=== PATIENT | male | born 1975 | race Caucasian/White ===

== ENCOUNTER 2021-02-15 18:13 | Emergency (ER) | payer SELFPAY ==
[~2021-02-15] VITALS: Ht 190.5 cm; Wt 81.8 kg
--- NOTE | 2021-02-15 18:32 | PHYS DOC ---
Past Medical History Past Medical History: Seizure General Adult HPI: HPI: Patient is a 45 year old male who presents with headache, jaw pain, and neck pain after a fall earlier today. He is currently incarcerated. At 1pm today was using the phones with his feet up on a desk and his feet slipped and he fell backwards striking his head. +LOC. Woke up in the [facility]. He was noted to have some shaking activity once after his fall that was self limited. Described as tremor rather than tonic/clonic with a decreased level of consciousness. The assisted was also concerned that he had decreased jumpbasting armhole baster strength, so he was sent in for further evaluation. Blood glucose was in 130s for EMS. GCS 15. Placed in cervical collar prior to arrival. He does not offer this spontaneously but when asked he feels like his right arm feels weaker than usual. Review of Systems: Review of Systems: Constitutional: Denies fever or chills. [] Eyes: Denies change in visual acuity. [] HENT: Reports neck pain and L jaw pain. Respiratory: Denies cough or shortness of breath. [] Cardiovascular: Denies chest pain or edema. [] GI: Denies abdominal pain, nausea, vomiting, bloody stools or diarrhea. [] : Denies dysuria. [] Musculoskeletal: Denies back pain or joint pain. [] Integument: Denies rash. [] Neurologic: Reports headache, and focal R arm weakness. Endocrine: Denies polyuria or polydipsia. [] Lymphatic: Denies swollen glands. [] Psychiatric: Denies depression or anxiety. [] Heart Score: C/O Chest Pain: No Risk Factors: Risk Factors: DM, Current or recent (<one month) smoker, HTN, HLP, family history of CAD, obesity. Risk Scores: Score 0 - 3: 2.5% MACE over next 6 weeks - Discharge Home Score 4 - 6: 20.3% MACE over next 6 weeks - Admit for Clinical Observation Score 7 - 10: 72.7% MACE over next 6 weeks - Early Invasive Strategies Physical Exam: PE: Constitutional: Well developed, well nourished, no acute distress, non-toxic appearance. [] HENT: Normocephalic, atraumatic, bilateral external ears normal, oropharynx moist, no oral exudates, nose normal. [] Eyes: PERRLA, EOMI, conjunctiva normal, no discharge. [] Neck: In field collar. + midline cervical ttp. Cardiovascular:Heart rate regular rhythm, no murmur [] Lungs & Thorax: Bilateral breath sounds clear to auscultation. No chest wall tenderness. [] Abdomen: Bowel sounds normal, soft, no tenderness, no masses, no pulsatile masses. [] Skin: Warm, dry, no erythema, no rash. [] Back: No tenderness, no CVA tenderness. [] Extremities: No pelvic tenderness, No extremity ttp, no cyanosis, no clubbing, ROM intact, no edema. [] Neurologic: Alert and oriented X 3, pupils equal/round/reactive. Speech normal. No facial assymetry. 4/5 strength in RUE in jumpbasting armhole baster strength, flexion/extension of elbow, and abduction. 5/5 strength in LUE in jumpbasting armhole baster strength, flexion/extension of elbow, and abduction. EKG: EKG: [] Radiology/Procedures: Radiology/Procedures: [] Impression: [facility] [address] [place] [address] IMAGING REPORT Signed PATIENT: IRMA TURNER ACCOUNT: [id number] : 1975 LOCATION: ER AGE: 45 SEX: M EXAM STATUS: PRE ER ORD. PHYSICIAN: ITZ SAMAYOA MD REASON: fall, loc, facial trauma PROCEDURE: CT CERVICAL SPINE WO CONTRAST Exam: CT head, maxillofacial and cervical spine INDICATION: Fall, loss of consciousness TECHNIQUE: Sequential axial images through the head, face and cervical spine were obtained without the administration of IV contrast. Exposure: One or more of the following in the visualized dose reduction fabby hniques were utilized for this examination: 1. Automated exposure control 2. Adjustment of the MA and/or KV according to patient size 3. Use of iterative of reconstructive technique Comparisons: None FINDINGS: Head: No focal parenchymal lesion or hemorrhage is identified. There is no midline shift or sulcal effacement. No acute vascular territory infarction is identified. Cabrera-white distinction is preserved. The ventricular system is within normal limits without compression hydrocephalus. The basal cisterns are well maintained. Face: The visualized portions of the paranasal sinuses and mastoid air cells are well-pneumatized. No acute fractures. Globes and contents are normal. Cervical spine: Straightening of cervical spine which may be positional. Vertebral body heights are well-maintained. Fracture through the cervical spine is not identified. Mild multilevel spondylotic change in cervical spine with degenerative disc disease greatest at C5-C6 and C6-C7. Mild bilateral facet arthropathy is also noted in the cervical spine. Visualized paraspinal soft tissues are unremarkable. IMPRESSION: 1. No acute intracranial abnormality. 2. No acute traumatic injury at the face. 3. Negative CT C-spine for acute traumatic injury. Electronically signed by: Rhiannon Leon MD (02/15/2021 7:21 PM) [facility] DICTATED and SIGNED BY: RHIANNON LEON MD DATE: 02/15/21 [id number] [facility] [address] [place] [address] IMAGING REPORT Signed PATIENT: IRMA TURNER ACCOUNT: [id number] : 1975 LOCATION: ER AGE: 45 SEX: M EXAM STATUS: REG ER ORD. PHYSICIAN: ITZ SAMAYOA MD REASON: trauma,neck pain,RUE weakness,uncontrolled seizures throughout MRI PROCEDURE: CERVICAL SPINE WO CONTRAST Exam: MRI cervical spine without contrast INDICATION: Trauma, neck pain, right upper extremity weakness, TECHNIQUE: Multiplanar multisequence MRI of the cervical spine was obtained without the administration of IV contrast. Comparisons: CT same day FINDINGS: Visualized intracranial structures are unremarkable. Vertebral body heights are well-maintained. Straightening of the cervical spine which may positional. Bone marrow signal is normal. Spinal cord has a normal course, caliber and signal. C2-C3: No significant neural foraminal or spinal canal stenosis. C3-C4: Mild broad-based disc ossific complex causing effacement of the ventral CSF. No significant neural foraminal stenosis. C4-C5: Mild broad-based disc ossific complex without significant neural foraminal or spinal canal stenosis. C5-C6: Mild broad-based disc ossific complex effacing the ventral CSF causing mild right-sided neural foraminal stenosis. C6-C7: Evaluation limited secondary to patient motion. C7-T1: Evaluation limited secondary to patient motion. Visualized paraspinal soft tissues are unremarkable. IMPRESSION: 1. No sequela of acute traumatic injury identified at the cervical spine. 2. Mild spondylotic changes as described above, with limitations in the lower cervical spine secondary to patient motion. Electronically signed by: Rhiannon Leon MD (02/15/2021 9:44 PM) [facility] DICTATED and SIGNED BY: RHIANNON LEON MD DATE: 02/15/21 [id number] 0 Course & Med Decision Making: Course & Med Decision Making Pertinent Labs and Imaging studies reviewed. (See chart for details) Pt is a 45 yo male w/ hx of epilepsy who presents after a mechanical fall with head strike and LOC. He has neck pain and RUE weakness on exam. CT imaging of head/neck/facial bones ordered. There was some question of seizure activity after his traumatic injury. Will continue to monitor. 630 CT imaging was negative for acute traumatic injury. Does have right upper extremity weakness, so will obtain MRI of cervical spine to exclude cord/ligamentous injury. Discussed with neurosurgery BULLION WEIGHER, Milagros, who approved MRI after discussion with Dr. Miller. 2152 MRI without acute findings. No traumatic etiology for RUE weakness found. Improved on re-evaluation. Consider carlos's paralysis as potential cause. 2021 Dragon Disclaimer: iConclude Disclaimer: This electronic medical record was generated, in whole or in part, using a voice recognition dictation system. Departure Departure Impression: Primary Impression: Neck pain Disposition: HOME / SELF CARE / HOMELESS Condition: STABLE Additional Instructions: A CT scan of your neck, head, and facial bones was negative for any injuries. An MRI was done of your neck and did not show any injuries to your spinal cord or the ligaments around your spine. For pain tylenol and ibuprofen are best used on a schedule. Please alternate between the two. -Tylenol 1000 mg every 6 hours (do not exceed 4000 mg in one day) -Ibuprofen 400 mg every 6 hours. Take with food. Do not take for more than 1 week. ITZ SAMAYOA MD Feb 15, 2021 18:32
[2021-02-15] MEDS ORDERED: MORPHINE SULFATE 4 MG/ML INJ. IVP ONE ×2 (19:00→21:30)
[2021-02-15 19:04] LABS: BASO # 0.1 x10^3/uL (0.0-0.2); BASO % 1 % (0-3); EOS % 1 % (0-3); HEMATOCRIT 38.7 % (39.0-53.0); HEMOGLOBIN 12.7 g/dL (13.0-17.5); LYMPH % 17 % (24-48); MEAN CORPUSCULAR HEMOGLOBIN 28 pg (25-35); MEAN CORPUSCULAR HGB CONC 33 g/dL (31-37); MEAN CORPUSCULAR VOLUME 84 fL (79-100); MONO # 0.5 x10^3/uL (0.0-1.1); MONO % 8 % (0-9); NEUT # 4.6 x10^3/uL (1.8-7.7); NEUT % 74 % (31-73); PLATELET COUNT 204 x10^3/uL (140-400); WHITE BLOOD COUNT 6.3 x10^3/uL (4.0-11.0)
[2021-02-15 19:12] LABS: CALCIUM 8.6 mg/dL (8.5-10.1); CREATININE 0.8 mg/dL (0.7-1.3); POTASSIUM 4.1 mmol/L (3.5-5.1)
--- NOTE | 2021-02-15 19:23 | RAD ---
Exam: CT head, maxillofacial and cervical spine INDICATION: Fall, loss of consciousness TECHNIQUE: Sequential axial images through the head, face and cervical spine were obtained without th e administration of IV contrast. Exposure: One or more of the following in the visualized dose reduction techniques were utilized for this examination: 1. Automated exposure control 2. Adjustment of the MA and/or KV according to patient size 3. Use of iterative of reconstructive technique Comparisons: None FINDINGS: Head: No focal parenchymal lesion or hemorrhage is identified. There is no midline shift or sulcal effaceme nt. No acute vascular territory infarction is identified. Cabrera-white distinction is preserved. The ventricular system is within normal limits without compression hydrocephalus. The basal cisterns are well maintained. Face: The visualized portions of the paranasal sinuses and mastoid air cells are well-pneumatized. No acute fractures. Globes and contents are normal. Cervical spine: Straightening of cervical spine which may be positional. Vertebral body heights are well-maintained. Fracture through the cervical spine is not identified. Mild multilevel spondylotic change in cervical spine with degenerative disc disease greatest at C5-C6 and C6-C7. Mild bilateral facet arthropathy is also noted in the cervical spine. Visualized paraspinal soft tissues are unremarkable. IMPRESSION: 1. No acute intracranial abnormality. 2. No acute traumatic injury at the face. 3. Negative CT C-spine for acute traumatic injury. Electronically signed by: Rhiannon Robertson MD (02/15/2021 7:21 PM) [facility]
[2021-02-15] MEDS ORDERED: KETOROLAC 15 MG/ML VIAL. ONE (19:46)
--- NOTE | 2021-02-15 19:55 | EKG ---
[facility] [address] [place] [address] Test Date: 2021-02-15 Test Time: 18:58:08 Pat Name: IRMA TURNER Department: Room: Gender: M [employer]: : 1975 Requested By: ITZ SAMAYOA Order Number: [id number] Reading MD: Biju Brown MD Measurements Intervals [place] Rate: 81 P: 132 WV: 138 QRS: 133 QRSD: 104 T: 138 QT: 356 QTc: 414 Interpretive Statements SINUS RHYTHM LIMB LEAD MISPLACEMENT Electronically Signed On 02-15-2021 20:16:45 ISSUING OPERATOR by Biju Brown MD
[2021-02-15] MEDS ORDERED: KETOROLAC 15 MG/ML VIAL. IVP ONE (20:00)
--- NOTE | 2021-02-15 21:47 | RAD ---
Exam: MRI cervical spine without contrast INDICATION: Trauma, neck pain, right upper extremity weakness, TECHNIQUE: Multiplanar multisequence MRI of the cervical spine was obtained without the administratio n of IV contrast. Comparisons: CT same day FINDINGS: Visualized intracranial structures are unremarkable. Vertebral body heights are well-maintained. Straightening of the cervical spine which may positional. Bone marrow signal is normal. Spinal cord has a normal course, caliber and signal. C2-C3: No significant neural foraminal or spinal canal stenosis. C3-C4: Mild broad-based disc ossific complex causing effacement of the ventral CSF. No significant ne ural foraminal stenosis. C4-C5: Mild broad-based disc ossific complex without significant neural foraminal or spinal canal marielle nosis. C5-C6: Mild broad-based disc ossific complex effacing the ventral CSF causing mild right-sided neural foraminal stenosis. C6-C7: Evaluation limited secondary to patient motion. C7-T1: Evaluation limited secondary to patient motion. Visualized paraspinal soft tissues are unremarkable. IMPRESSION: 1. No sequela of acute traumatic injury identified at the cervical spine. 2. Mild spondylotic changes as described above, with limitations in the lower cervical spine seconda ry to patient motion. Electronically signed by: Rhiannon Robertson MD (02/15/2021 9:44 PM) [facility]
[2021-02-15 22:25] VITALS: BP 127/60
== END 2021-02-15 22:44 | disposition home or self-care (01) ==
LOC: ER 18:13 → EEVIPCON 18:13 → ER 22:44
DX: M54.2 Cervicalgia (principal); R51.9 Headache, unspecified; R68.84 Jaw pain; G89.11 Acute pain due to trauma; W18.09XA Striking against other object with subsequent fall, initial encounter; Y93.89 Activity, other specified; Y92.89 Other specified places as the place of occurrence of the external cause; Y99.8 Other external cause status
CPT/HCPCS: 36415; 70450; 70486; 72125; 72141; 80048; 85025; 93005; 96374; 96375; 96376; 99285; J1885; J2270

== ENCOUNTER 2021-02-16 14:36 | Emergency (ER) | payer OTHER ==
[~2021-02-16] VITALS: Ht 185.4 cm; Wt 81.8 kg
[2021-02-16] MEDS ORDERED: IV NORMAL SALINE 1000ML BAG 1,000 ML IV SCH (14:45)
--- NOTE | 2021-02-16 14:46 | PHYS DOC ---
Past Medical History Past Medical History: Seizure Additional Past Medical Histor: neuropathy Past Surgical History: Other Additional Past Surgical Histo: tongue sx, LUE cut repair Smoking Status: Never Smoker Alcohol Use: None General Adult EDM: Chief Complaint: RAPID HEART RATE HPI: HPI: 45-year-old male past medical history of epilepsy and bipolar disorder (gets Risperdal injections), [facility], concern for SVT versus sinus tachycardia of 179 at 1435. Patient reports feeling dizzy, having chest palpitations and feeling short of air. States he tried to bear down which was unsuccessful. States symptoms resolved while he was urinating (persisted for approximately 20 minutes.). Has been incarcerated for over a decade. Denies any meth, cocaine, IV drug use or other stimulants (no prescribed stimulants-med list reviewed). EMR was reviewed and patient was seen in the emergency department yesterday for a witnessed seizure episode and neck pain-MRI of the cervical spine no traumatic injury. Has been vaccinated for Covid. No history of Covid. No prior history of SVT. C/o "mild" headache. Denies any repeat head injury since being seen in the emergency department last night. Review of Systems: Review of Systems: Constitutional: Denies fever or chills. [] Eyes: Denies change in visual acuity. [] HENT: Denies nasal congestion or sore throat. [] Respiratory: Denies cough or hemoptysis Cardiovascular: Denies chest pain or edema or syncope GI: Denies abdominal pain, nausea, vomiting, bloody stools or diarrhea. [] : Denies dysuria or hematuria Musculoskeletal: Denies back pain or joint pain. [] Integument: Denies rash or diaphoresis Neurologic: Denies headache, focal weakness or sensory changes. [] Endocrine: Denies polyuria or polydipsia. [] Lymphatic: Denies swollen glands. [] Psychiatric: Denies depression or anxiety. [] Heart Score: C/O Chest Pain: No Risk Factors: Risk Factors: DM, Current or recent (<one month) smoker, HTN, HLP, family history of CAD, obesity. Risk Scores: Score 0 - 3: 2.5% MACE over next 6 weeks - Discharge Home Score 4 - 6: 20.3% MACE over next 6 weeks - Admit for Clinical Observation Score 7 - 10: 72.7% MACE over next 6 weeks - Early Invasive Strategies Allergies: Allergies: Allergies Coded Allergies Type Severity Reaction Last Updated Verified haloperidol Allergy Intermediate rash 02/15/21 Yes phenytoin Allergy Intermediate rash 02/15/21 Yes Physical Exam: PE: Constitutional: Well developed, well nourished, no acute distress, non-toxic appearance. HENT: Normocephalic, atraumatic, Eyes: EOMI, conjunctiva normal, no discharge. Neck: Normal range of motion, supple, Cardiovascular: S1/2 present, tachycardic on arrival Lungs & Thorax: Speaking in full sentences, bilateral equal chest rise, no tachypnea or increased work of breathing Abdomen: soft, no tenderness, Skin: Warm, dry, no erythema, no rash. [] Extremities: No tenderness, no cyanosis, no lower extremity edema Neurologic: Alert and oriented X 3, normal motor function, normal sensory function, no focal deficits noted. [] Psychologic: Affect normal, judgement normal, mood normal. [] EKG: EKG: Sinus tachycardia 104 bpm, no axis deviation, normal intervals, no T wave inversion, no ST elevation or ST depression, no active chest pain Radiology/Procedures: Radiology/Procedures: []IMAGING REPORT Signed PATIENT: IRMA TURNER ACCOUNT: [id number] : 1975 LOCATION: ER AGE: 45 SEX: M EXAM STATUS: PRE ER ORD. PHYSICIAN: RODRIGUEZ DENNISON DO REASON: svt PROCEDURE: PORTABLE CHEST 1V Single view of the chest. 02/16/2021 2:44 PM Indication: Supraventricular tachycardia Comparison: None Findings: There is no focal consolidation. There is no pleural effusion or pneumothorax. The cardiomediastinal silhouette and pulmonary vasculature are within normal limits. No acute osseous abnormalities are seen. Impression: No evidence of acute cardiopulmonary process. Electronically signed by: Gregory Crane MD (02/16/2021 2:56 PM) [id number] DICTATED and SIGNED BY: GREGORY CRANE MD DATE: 02/16/21 [id number] 0 Course & Med Decision Making: Course & Med Decision Making Pertinent Labs and Imaging studies reviewed. (See chart for details) Concern for brief episode of SVT that did not resolve with fall centimeters at correctional facility. EKG sent from facility did show SVT. Unclear etiology. Basic labs including D-dimer unremarkable. Heart rate on monitor is 91 at time of dispo. Headache mild. Will discharge home with strict ED return precaution s were given for recurrent symptoms, chest pain, neurologic deficits or syncope. Encouraged urgent outpatient follow-up with PMD and cardiology via nonemergent basis. Life-threatening processes were considered but are low suspicion at this time, given history, physical exam and ED workup. Pt was educated on all prescription medications and adverse effects. All patient's questions were answered and pt was stable at time of discharge. Life/limb-threatening differential includes but is not limited to, acute myocardial infarction, aortic dissection, congestive heart failure, esophageal injury including rupture, surgical abdomen, arrhythmia, cardiomyopathy, myocarditis, pericarditis, peptic ulcer disease, pneumomediastinum, pneumonia, pneumothorax, pulmonary embolus, unstable angina, rib fracture, contusion, pericardial tamponade or effusion, traumatic injury including mediastinal hemo rrhage or hematoma, or pulmonary contusion. I have spoken with the patient and/or caregivers. I explained the patient's condition, diagnoses and treatment plan based on the information available to me at this time. I have answered the patient and/or caregiver's questions and addressed any concerns. The patient and/or caregivers have a good understanding of patient's diagnosis, condition and treatment plan as can be expected at this point. Vital signs have been stable. Patient's condition is stable and appropriate for discharge from the emergency department. Patient will pursue further outpatient evaluation with primary care physician or other designated or consulting physician as outlined in the discharge instructions. The patient and/or caregivers are agreeable to this plan of care and follow-up instructions have been explained in detail. The patient and/or caregivers have received these instructions in written form and have expressed an understanding of the discharge instructions. The patient and/or caregivers are aware that any significant change of condition or worsening of symptoms should prompt immediate return to this or the closest emergency department or call to 911. Cristina Disclaimer: Cristina Disclaimer: This electronic medical record was generated, in whole or in part, using a voice recognition dictation system. Departure Departure Impression: Primary Impression: SVT (supraventricular tachycardia) Additional Impression: Headache Disposition: HOME / SELF CARE / HOMELESS Condition: STABLE Referrals: NO PCP (PCP) Follow-up with your primary care physician in 24 to 48 hours OR FOLLOW UP WITH FAMILY MEDICINE: [address], [address] [place] [address] Patient Instructions: General Headache Without Cause, Supraventricular Tachycardia Additional Instructions: FOLLOW UP WITH CARDIOLOGY: FOR DEFINITIVE MANAGEMENT of arrhythmias [facility] [address] [place] [address] EMERGENCY DEPARTMENT GENERAL DISCHARGE INSTRUCTIONS Thank you for coming to [facility] Emergency Department (ED) today and trusting us with you care. We trust that you had a positive experience in our Emergency Department. If you wish to speak to the department management, you may call the Director at [phone]. YOUR FOLLOW UP INSTRUCTIONS ARE FOLLOWS: 1. Do you have a private Doctor? If you do not have a private doctor, please ask for a resource list of physicians or clinics that may be able to assist you with follow up care. 2. The Emergency Physicain has interpreted your x-rays. The X-Ray specialist will also review them. If there is a change in the findings, you will be notified in 48 hours when at all possible. 3. A lab test or culture has been done, your results will be reviewed and you will be notified if you need a change in treatment. ADDITIONAL INSTRUCTIONS AND INFORMATION: 1. Your care today has been supervised by a physician who is specially trained in emergency care. Many problems require more than one evaluation for a complete diagnosis and treatment. We recommend that you schedule your follow up appointment as leigha mmended to ensure complete treatment of you illness or injury. If you are unable to obtain follow up care and continue to have a problem, or if your condition worsens, we recommend that you return to the ED. 2. We are not able to safely determine your condition over the phone nor are we able to give sound medical advice over the phone. For these safety reasons, if you call for medical advice we will ask you to come to the ED for further evaluation. 3. If you have any questions regarding these discharge instructions please call the ED at [phone]. SAFETY INFORMATION: In the interest of safety, wellness, and injury prevention; we encourage you to wear your sealbelt, if you smoke; quite smoking, and we encourage family to use a protective helmet for bicycling and other sporting events that present an increased risk for head injury. IF YOUR SYMPTOMS WORSEN OR NEW SYMPTOMS DEVELOP, OR YOU HAVE CONCERNS ABOUT YOUR CONDITION; OR IF YOUR CONDITION WORSENS WHILE YOU ARE WAITING FOR YOUR FOLLOW UP APPOINTMENT; EITHER CONTACT YOUR PRIMARY CARE DOCTOR, THE PHYSICIAN WHOSE NAME AND NUMBER YOU WERE GIVEN, OR RETURN TO THE ED IMMEDIATELY. [facility]ITAL[facility]ODRIGUEZ DO Feb 16, 2021 14:46
--- NOTE | 2021-02-16 14:58 | RAD ---
Single view of the chest. 02/16/2021 2:44 PM Indication: Supraventricular tachycardia Comparison: None Findings: There is no focal consolidation. There is no pleural effusion or pneumothorax. The cardiome diastinal silhouette and pulmonary vasculature are within normal limits. No acute osseous abnormaliti es are seen. Impression: No evidence of acute cardiopulmonary process. Electronically signed by: Gregory Luciano MD (02/16/2021 2:56 PM) [id number]
[2021-02-16 15:05] LABS: BASO # 0.1 x10^3/uL (0.0-0.2); BASO % 1 % (0-3); EOS # 0.1 x10^3/uL (0.0-0.7); EOS % 2 % (0-3); HEMATOCRIT 40.1 % (39.0-53.0); HEMOGLOBIN 13.4 g/dL (13.0-17.5); LYMPH # 1.1 x10^3/uL (1.0-4.8); LYMPH % 14 % (24-48); MEAN CORPUSCULAR HEMOGLOBIN 28 pg (25-35); MEAN CORPUSCULAR HGB CONC 33 g/dL (31-37); MEAN CORPUSCULAR VOLUME 85 fL (79-100); MONO # 0.6 x10^3/uL (0.0-1.1); MONO % 8 % (0-9); NEUT % 76 % (31-73); PLATELET COUNT 208 x10^3/uL (140-400); RED BLOOD COUNT 4.73 x10^6/uL (4.30-5.70); RED CELL DISTRIBUTION WIDTH 14.5 % (11.5-14.5); WHITE BLOOD COUNT 7.9 x10^3/uL (4.0-11.0)
[2021-02-16 15:29] LABS: CALCIUM 8.4 mg/dL (8.5-10.1); CREATININE 1.1 mg/dL (0.7-1.3); GFR 72.7; POTASSIUM 4.6 mmol/L (3.5-5.1)
[2021-02-16 15:35] LABS: ALBUMIN 3.3 g/dL (3.4-5.0); ALBUMIN/GLOBULIN RATIO 1.1 (1.0-1.7); TOTAL BILIRUBIN 0.2 mg/dL (0.2-1.0); TOTAL PROTEIN 6.2 g/dL (6.4-8.2)
--- NOTE | 2021-02-16 15:35 | EKG ---
[facility] [address] [place] [address] Test Date: 2021-02-16 Test Time: 14:59:26 Pat Name: IRMA TURNER Department: Room: Gender: M Business Support Assistant: : 1975 Requested By: RODRIGUEZ DENNISON Order Number: [id number] Reading MD: Randall Cesar Measurements Intervals [place] Rate: 104 P: 42 CT: 138 QRS: 38 QRSD: 102 T: 34 QT: 320 QTc: 427 Interpretive Statements SINUS TACHYCARDIA Electronically Signed On 02-17-2021 14:22:25 AUTOMOTIVE GLASS INSTALLER by Randall Cesar
[2021-02-16 15:42] LABS: BARBITURATES NEG (NEG); BENZODIAZEPINES NEG (NEG); CANNABINOIDS NEG (NEG); COCAINE NEG (NEG); METHADONE NEG (NEG); OPIATES POS (NEG); PHENCYCLIDINE NEG (NEG)
[2021-02-16 15:51] LABS: AMPHETAMINE/METHAMPHETAMINE NEG (NEG)
[2021-02-16 16:15] LABS: BILIRUBIN,URINE NEGATIVE (NEG); CLARITY,URINE CLEAR; COLOR,URINE YELLOW; NITRITE,URINE NEGATIVE (NEG); PH,URINE 5.5 (<5.0-8.0); PROTEIN,URINE NEGATIVE (NEG-TRACE); UROBILINOGEN,URINE 0.2 mg/dL (0.2 mg/dL)
[2021-02-16 16:21] LABS: BACTERIA,URINE 0 /HPF (0-FEW); RBC,URINE 0 /HPF (0-2); WBC,URINE 0 /HPF (0-4)
[2021-02-16] MEDS ORDERED: ACETAMINOPHEN 325 MG TABLET. PO ONE (16:30)
[2021-02-16 17:30] VITALS: BP 95/54
== END 2021-02-16 17:51 | disposition home or self-care (01) ==
LOC: EEVIPCON 14:36 → ER 14:36
DX: I47.1 Supraventricular tachycardia (principal); R51.9 Headache, unspecified; G40.909 Epilepsy, unspecified, not intractable, without status epilepticus; F31.9 Bipolar disorder, unspecified; Z88.8 Allergy status to other drugs, medicaments and biological substances
CPT/HCPCS: 36415; 71045; 80053; 80307; 81001; 82550; 83735; 84484; 85025; 85379; 93005; 96360; 99285; J7030

== ENCOUNTER 2021-07-10 20:06 | Inpatient (IN) | payer OTHER ==
[~2021-07-10] VITALS: Ht 182.9 cm; Wt 91.9 kg
[2021-07-10] MEDS ORDERED: DIPHTH,PERTUSS(ACELL),TET TOX 0.5 ML DISP.SYRIN. VAX IM ONE (22:00)
--- NOTE | 2021-07-10 22:07 | RAD ---
Study: XR ELBOW COMPLETE_LEFT 3+VIEWS Indication: Olecranon bursitis. Comparison: None. Findings: No acute fracture or elbow joint effusion. Maintained joint spaces. Elbow alignment is anatomic. Soft tissue prominence at the dorsum of the elbow mainly over the olecranon process. There appears to be some soft tissue injury with a trace amount of soft tissue gas at the antecubital fossa. Impression: Radiographic findings suggestive of olecranon bursitis and soft tissue injury to the antecubital chery a with minimal subcutaneous gas. No retained radiopaque foreign body. No acute osseous abnormality or joint effusion. Electronically signed by: MARYANA CADE MD (07/10/2021 10:05 PM) [facility]
[2021-07-10 22:52] LABS: BASO # 0.1 x10^3/uL (0.0-0.2); BASO % 1 % (0-3); EOS # 0.2 x10^3/uL (0.0-0.7); EOS % 3 % (0-3); HEMATOCRIT 41.1 % (39.0-53.0); HEMOGLOBIN 13.6 g/dL (13.0-17.5); LYMPH # 1.4 x10^3/uL (1.0-4.8); LYMPH % 20 % (24-48); MEAN CORPUSCULAR HEMOGLOBIN 28 pg (25-35); MEAN CORPUSCULAR HGB CONC 33 g/dL (31-37); MEAN CORPUSCULAR VOLUME 84 fL (79-100); MONO # 0.5 x10^3/uL (0.0-1.1); MONO % 7 % (0-9); NEUT # 4.9 x10^3/uL (1.8-7.7); NEUT % 69 % (31-73); PLATELET COUNT 237 x10^3/uL (140-400); RED BLOOD COUNT 4.91 x10^6/uL (4.30-5.70); RED CELL DISTRIBUTION WIDTH 13.4 % (11.5-14.5); WHITE BLOOD COUNT 7.1 x10^3/uL (4.0-11.0)
[2021-07-10 23:02] LABS: CALCIUM 9.1 mg/dL (8.5-10.1); GFR 81.2; POTASSIUM 4.6 mmol/L (3.5-5.1)
[2021-07-10 23:04] LABS: C-REACTIVE PROTEIN 2.1 mg/L (0-3.3)
[2021-07-10] MEDS ORDERED: LIDOCAINE 2%/EPI 1:100,000 20 ML VIAL. INJ ONE (23:45)
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
[2021-07-11] MEDS ORDERED: PIPERACILLIN/TAZOBACTAM 4.5 GM in IV DEXTROSE 5% 100ML 100 ML IV ONE (01:00)
[2021-07-11] MEDS ORDERED: KETOROLAC 15 MG/ML VIAL. IVP ONE (02:00)
[2021-07-11 05:15] VITALS: BP 114/80
[2021-07-11 07:00] VITALS: BP 109/75
--- NOTE | 2021-07-11 07:00 | NUR ---
Report received from Jesus THOMAS, will continue to care for patient. Pt resting in bed, no other needs.
[2021-07-11] MEDS ORDERED: ELECTROLYTE (NON-ICU) PROTOCOL. MC PRN (10:15)
[2021-07-11] MEDS ORDERED: ACETAMINOPHEN 325 MG TABLET. PO PRN (10:15)
[2021-07-11] MEDS ORDERED: oxyCODONE/APAP 5/325 1 TAB TABLET PO PRN ×2 (10:15)
[2021-07-11] MEDS ORDERED: ONDANSETRON PF 4 MG/2 ML VIAL. IVP PRN (10:15)
[2021-07-11] MEDS ORDERED: CALCIUM CARBONATE 500 MG TAB.CHEW PO PRN (10:15)
[2021-07-11 11:00] VITALS: BP 97/50
[2021-07-11] MEDS ORDERED: AMOXICILLIN/K CLAV 875/125MG TABLET. PO SCH (11:00)
[2021-07-11] MEDS ORDERED: DIVA500T17 PO (11:27)
[2021-07-11] MEDS ORDERED: LISI10TA16 PO (11:27)
[2021-07-11] MEDS ORDERED: IBUP-985 PO (11:27)
[2021-07-11] MEDS ORDERED: GABA600T7 PO (11:27)
[2021-07-11] MEDS ORDERED: ACET325T21 PO (11:27)
[2021-07-11] MEDS ORDERED: LISINOPRIL 10 MG TABLET PO SCH (12:00)
[2021-07-11] MEDS ORDERED: diphenhydrAMINE HCL 25 MG CAPSULE PO PRN (13:30)
[2021-07-11] MEDS ORDERED: cefTRIAXone IV Push 1 GM VIAL. IVP SCH (14:00)
[2021-07-11] MEDS ORDERED: metroNIDAZOLE 500 MG TABLET PO SCH (14:00)
[2021-07-11 15:00] VITALS: BP 116/73
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
[2021-07-11] MEDS ORDERED: METR-34 PO (18:04)
[2021-07-11] MEDS ORDERED: LEVO500T9 PO (18:04)
--- NOTE | 2021-07-11 18:13 | NUR ---
Pt discharged back to [facility], report called into the infirmary given to Saravanan.
[2021-07-11] MEDS ORDERED: SENNOSIDES/DOCUSATE 8.6/50MG TABLET. PO SCH (21:00)
[2021-07-11] MEDS ORDERED: LACTOBACILLUS RHAMNOSUS GG 1 CAPSULE. PO SCH (21:00)
[2021-07-11] MEDS ORDERED: DIVALPROEX EXTENDED RELEASE 500 MG TAB.ER.24H. PO SCH (21:00)
[2021-07-11] MEDS ORDERED: GABAPENTIN 300 MG CAPSULE. PO SCH (21:00)
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
== END 2021-07-11 18:18 | DRG 605 ==
LOC: EEVIPCON 20:06 → ER 20:06 → OBSVTOIN 07-11 04:41 → 4 NORTH 07-11 04:41
PROVIDERS: ADMIT Student in an Organized Health Care Education/Training Program; ATTEND Student in an Organized Health Care Education/Training Program
PROC: 0HQCXZZ Repair Left Upper Arm Skin, External Approach (ICD-10-PCS; principal; 2021-07-11)
DX: S51.012A Laceration without foreign body of left elbow, initial encounter (principal); S41.112A Laceration without foreign body of left upper arm, initial encounter; M70.22 Olecranon bursitis, left elbow; G40.909 Epilepsy, unspecified, not intractable, without status epilepticus; G62.9 Polyneuropathy, unspecified; Z88.8 Allergy status to other drugs, medicaments and biological substances; X99.1XXA Assault by knife, initial encounter; Y93.89 Activity, other specified; Y92.89 Other specified places as the place of occurrence of the external cause; Y99.8 Other external cause status
CPT/HCPCS: 12004; 36415; 73080; 80048; 85025; 85651; 86140; 90471; 90715; 96365; 96375; G0378; G0379; J0696; J1885; J2543; J3490; J7060; 99285-25; Q0163

== ENCOUNTER 2021-07-29 22:33 | Emergency (ER) | payer OTHER ==
[~2021-07-29] VITALS: Ht 182.9 cm; Wt 100.0 kg
[~2021-07-29 22:33] MED LIST: ACET325T21 PO; DIVA500T17 PO; GABA600T7 PO; IBUP-985 PO; LEVO500T9 PO; LISI10TA16 PO; METR-34 PO
[2021-07-29 22:37] VITALS: BP 105/63
[2021-07-29] MEDS ORDERED: LIDOCAINE 1%/EPI 1:100,000 20 ML VIAL. ONE (22:45)
--- NOTE | 2021-07-29 22:49 | PHYS DOC ---
Past Medical History Past Medical History: Seizure Additional Past Medical Histor: neuropathy, epilepsy Past Surgical History: No Surgical History Additional Past Surgical Histo: tongue sx, LUE cut repair Smoking Status: Former Smoker Alcohol Use: None General Adult EDM: Chief Complaint: LACERATION/AVULSION HPI: HPI: Patient is a 45 year old male prisoner cut his left arm with a razor. Patient had a tourniquet placed by medics and brought into the ER. Patient's last tetanus was 2 weeks ago Review of Systems: Review of Systems: Constitutional: Denies fever or chills. [] Eyes: Denies change in visual acuity. [] HENT: Denies nasal congestion or sore throat. [] Respiratory: Denies cough or shortness of breath. [] Cardiovascular: Denies chest pain or edema. [] GI: Denies abdominal pain, nausea, vomiting, bloody stools or diarrhea. [] : Denies dysuria. [] Musculoskeletal: Denies back pain or joint pain. [] Integument: Laceration of the left arm denies rash. [] Neurologic: Denies headache, focal weakness or sensory changes. [] Endocrine: Denies polyuria or polydipsia. [] Lymphatic: Denies swollen glands. [] Psychiatric: Denies depression or anxiety. [] Heart Score: C/O Chest Pain: No Risk Factors: Risk Factors: DM, Current or recent (<one month) smoker, HTN, HLP, family history of CAD, obesity. Risk Scores: Score 0 - 3: 2.5% MACE over next 6 weeks - Discharge Home Score 4 - 6: 20.3% MACE over next 6 weeks - Admit for Clinical Observation Score 7 - 10: 72.7% MACE over next 6 weeks - Early Invasive Strategies Allergies: Allergies: Allergies Coded Allergies Type Severity Reaction Last Updated Verified amoxicillin Allergy Intermediate Hives 07/11/21 Yes clavulanic acid Allergy Intermediate Hives 07/11/21 Yes haloperidol Allergy Intermediate rash 02/15/21 Yes phenytoin Allergy Intermediate rash 02/15/21 Yes sulfamethoxazole Allergy Intermediate Rash 07/11/21 Yes trimethoprim Allergy Intermediate Rash 07/11/21 Yes Physical Exam: PE: Constitutional: Well developed, well nourished, no acute distress, non-toxic appearance. [] HENT: Normocephalic, atraumatic, bilateral external ears normal, oropharynx moist, no oral exudates, nose normal. [] Eyes: PERRLA, EOMI, conjunctiva normal, no discharge. [] Neck: Normal range of motion, no tenderness, supple, no stridor. [] Cardiovascular:Heart rate regular rhythm, no murmur [] Lungs & Thorax: Bilateral breath sounds clear to auscultation [] Abdomen: Bowel sounds normal, soft, no tenderness, no masses, no pulsatile masses. [] Skin: Patient has a laceration measuring approximately 9 cm on his left AC. Bleeding is controlled. Linear in fashion. No major vessels were damaged warm, dry, no erythema, no rash. [] Back: No tenderness, no CVA tenderness. [] Extremities: No tenderness, no cyanosis, no clubbing, ROM intact, no edema. [] Neurologic: Alert and oriented X 3, normal motor function, normal sensory function, no focal deficits noted. [] Psychologic: Affect normal, judgement normal, mood normal. [] Current Patient Data: Vital Signs: Vital Signs Date Time Temp Pulse Resp B/P (MAP) Pulse Ox O2 Delivery O2 Flow Rate FiO2 07/29/21 22:37 76 21 105/63 (77) 100 Room Air EKG: EKG: [] Radiology/Procedures: Radiology/Procedures: [] Course & Med Decision Making: Course & Med Decision Making Pertinent Labs and Imaging studies reviewed. (See chart for details) [] The tourniquet for the medics were taken down. Laceration was reapproximated. Patient will be discharged to the [facility]. Cristina Disclaimer: Cristina Disclaimer: This electronic medical record was generated, in whole or in part, using a voice recognition dictation system. Laceration Repair Lac Repair Indication: laceration[] Procedure: The patient was placed in the appropriate position and anesthesia around the left AC with museum preparator with epi. The area was then cleansed]. The laceration was repaired with 4-0 nylon sutures in a running technique. Patient had a total of 18 sutures the wound area was then dressed with pressure dressing Total repaired wound length: [9cm]. Other Items: The patient tolerated the procedure well Complications: None Departure Departure Referrals: UNKNOWN PCP NAME (PCP) LOIDA ANGELA DO Jul 29, 2021 22:49
== END 2021-07-29 23:04 ==
LOC: ER 22:33
DX: S41.112A Laceration without foreign body of left upper arm, initial encounter (principal); G40.909 Epilepsy, unspecified, not intractable, without status epilepticus; Z87.891 Personal history of nicotine dependence; W27.8XXA Contact with other nonpowered hand tool, initial encounter; Y93.89 Activity, other specified; Y92.89 Other specified places as the place of occurrence of the external cause; Y99.8 Other external cause status
CPT/HCPCS: 12004; 99283; J3490